=== PATIENT | male | born 2000 | race Caucasian/White ===

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

== ENCOUNTER → 2022-05-15 14:00 | Outpatient (BNVA) | payer BC, OTHER, SELFPAY | PROVIDERS: PCP Family Medicine; Visit Provider Family Medicine | DX: Z20.822 Contact with and (suspected) exposure to COVID-19 (principal) | CPT/HCPCS: 87426 ==